=== PATIENT | female | born 1975 | race Caucasian/White ===

== ENCOUNTER → 2016-08-09 | Outpatient (CLI) | payer OTHER ==
[~2016-08-09] MED LIST: GADOBUTROL 10 ML VIAL IVP ONE; GLUCAGON,HUMAN RECOMBINANT 0.3 MG in SYRINGE 0.3 ML IVP ONE
== END ==
LOC: FIMAGING 06:42
PROVIDERS: ATTEND Physician Assistant
DX: K50.00 Crohn's disease of small intestine without complications (principal)
CPT/HCPCS: A9585; J1610

== ENCOUNTER 2016-08-25 14:20 | Emergency (ER) | payer OTHER ==
[2016-08-25] MEDS ORDERED: ONDANSETRON 4 MG/2 ML VIAL IVP ONE (14:41)
[2016-08-25] MEDS ORDERED: NS 1,000 ML IV ONE (14:41)
--- NOTE | 2016-08-25 14:48 | EDPHY ---
H & P Stated Complaint: ABD PAIN, CONCERNED ABOUT SBO Source: Patient Exam Limitations: No limitations - Personal History LMP (Females 10-55): 1-7 Days Ago Current Tetanus Diphtheria and Acellular Pertussis (TDAP): Yes Tetanus Vaccine Date: 12/23 - Medical/Surgical History Hx Asthma: Yes Hx Chronic Respiratory Disease: No Hx Diabetes: No Hx Cardiac Disease: No Hx Renal Disease: No Hx Cirrhosis: No Hx Alcoholism: No Hx HIV/AIDS: No Hx Splenectomy or Spleen Trauma: No Other PMH: bronchitis, asthma, chronic sinus infections, CHRONS DISEASE, MISSCARRIAGE 07/26 - Social History Smoking Status: Never smoked HPI/ROS: CHIEF COMPLAINT: Abdominal pain, possible bowel obstruction HISTORY OF PRESENT ILLNESS: Patient complains of 4 days history of abdominal pain, nausea vomiting. Gradual onset. Constant duration. She had a short period of improvement on Sunday that quickly deteriorated. She has a moderate to severe pain in the epigastrium, left upper quadrant left lower quadrant. Worse with palpation and movement. Associated with nausea and vomiting of liquids and solids. One episode of diarrhea. No bloody stools or emesis. No fever chills. History of Crohn's and Meckel's diverticulum. She also has history of small-bowel obstruction that was treated conservatively. She is has 1 previous diagnostic laparoscopy without surgical intervention otherwise. [facility] is [facility]. She presented to Urgent Care earlier today. They performed a urinalysis and physical exam. They treated her with Toradol as her to our facility for higher level of care. PREVIOUS ABDOMINAL SURGERIES/DIAGNOSES: Crohn's disease, Meckel's diverticulum , previous small-bowel obstruction NPO: Last night followed, recently today with liquids REVIEW OF SYSTEMS: Ten systems reviewed and are negative unless otherwise noted in the HPI EXAMINATION: General Appearance: Alert, no distress Head: normocephalic, atraumatic Eyes: Pupils equal and round, no conjunctival pallor or injection ENT, Mouth: Mucous membranes moist. Uvula midline. Neck: Normal inspection, supple, non-tender Respiratory: Lungs are clear to auscultation Cardiovascular: Regular rate and rhythm. No Gastrointestinal: Abdomen is soft. Tenderness in the epigastrium, left upper quadrant and left lower quadrant. No guarding. No rigidity. No distention. No CVA tenderness. Bowel sounds are diminished in all 4 quadrants. No tympany. Back: non-tender, no bony abnormalities Neurological: GCS 15. A&O, nonfocal, normal gait Skin: Warm and dry, no rash Extremities: Nontender, no pedal edema Psychiatric: Mood and affect normal DIFFERENTIAL DIAGNOSES: Including but not limited to small-bowel obstruction, colitis, enteritis, diverticulitis, mesenteric adenitis, Crohn's flare, ulcerative colitis, cystitis MDM: 2:45 p.m. Abdominal pain with nausea and vomiting over the past few days. Patient has history of Crohn's disease with previous small bowel obstruction treated conservatively. Vital signs are stable. She does have moderate tenderness in the epigastrium and left side of the abdomen. Laboratory studies and CT have been ordered. She is in no acute distress. Nonsurgical abdomen. 3:30 p.m. Labs are all within normal limits. CT scan of the abdomen pelvis is pending at this time. 3:45 p.m. Notified by radiologist Dr. Parra. CT scan of the abdomen pelvis reveals no acute findings. I have re-evaluated the patient. Her pain is improving but not yet to a tolerable level for her. She is in no acute distress. 4:35 p.m. Patient is feeling significantly better. Her pain is tolerable and she is asking to be discharged home. I will discharge her home with short course of pain medication and Zofran. She is to follow up with primary care physician and GI physician early next week for definitive care. Return here for worsening pain, fever, chills, persistent vomiting. She is comfortable with this plan and discharged home in stable condition. ED Precautions: Worsening pain. Fever. Bloody stools. Bloody emesis. Constipation or diarrhea. SUPERVISION: Patient was evaluated in conjunction with the supervising physician. Please see their note for details. (William Hernandes) Constitutional: Initial Vital Signs Temperature (C) 37.0 C 08/25/16 14:26 Heart Rate 97 08/25/16 14:26 Respiratory Rate 16 08/25/16 14:26 Blood Pressure 112/79 08/25/16 14:26 O2 Sat (%) 96 08/25/16 14:26 O2 Delivery Mode Room Air Allergies/Adverse Reactions: Sulfa (Sulfonamide Antibiotics) Allergy (Severe, Verified 03/07/16 16:35) PHOTOSENSITIVITY hydrocodone [Hydrocodone] Allergy (Intermediate, Verified 03/07/16 16:35) Vomiting clemastine fumarate [From Antihistamine] Allergy (Verified 03/07/16 16:35) ALLERGY MED,UNKNOWN NAME onion Allergy (Verified 08/25/16 14:24) phenylpropanolamine HCl [From Antihistamine] Allergy (Verified 03/07/16 16:35) ALLERGY MED,UNKNOWN NAME pseudoephedrine HCl [From Antihistamine] Allergy (Verified 03/07/16 16:35) ALLERGY MED,UNKNOWN NAME tripelennamine HCl [From Antihistamine] Allergy (Verified 03/07/16 16:35) ALLERGY MED,UNKNOWN NAME triprolidine HCl [From Antihistamine] Allergy (Verified 03/07/16 16:35) ALLERGY MED,UNKNOWN NAME Home Medications: Medication Instructions Recorded Loratadine [Claritin 10 mg] 10 mg PO DAILY 10/10/13 Montelukast Sodium [Singulair 10 10 mg PO DAILY 01/09/14 mg (*)] 1 cap PO DAILY 01/13/15 Calcium Carbonate/Vitamin D3 2 tab PO DAILY 03/05/15 [Calcium 250+D Tablet] Enzymes,Digestive [Digestive 1 each PO DAILY 03/05/15 Enzyme] Magnesium 1 tab PO DAILY 03/05/15 Mesalamine [Pentasa 500 mg] 1,000 mg PO QID 03/05/15 Pantoprazole Sodium [Protonix 40mg 40 mg PO BID 03/05/15 (*)] Mesalamine [Pentasa 500 mg] 0 mg PO QID 03/06/15 Humira 03/07/16 Imuran 50 mg (*) 03/07/16 Probiotic 03/07/16 ALPRAZolam 08/25/16 Ondansetron Odt [Zofran Odt 4 mg 4 mg PO Q6 PRN #12 tab 08/25/16 (*)] oxyCODONE HCL/ACETAMINOPHEN 1 each PO Q4-6PRN PRN #14 tablet 08/25/16 [Percocet 5-325 mg Tablet] Medical Decision Making - Diagnostics Imaging Results: Imaging Impressions Abdomen CT 08/25/16 14:43 Impression: 1. Atherosclerotic aorta without aneurysm. 2. No CT evidence of appendicitis, abscess or bowel obstruction. 3. No pneumoperitoneum. Findings discussed with Emergency Department physician's property assistant, William Hernandes , at 1552 hours, 08/25/2016. Final report concurs with initial preliminary interpretation. ED Course/Re-evaluation: I did not see this patient while she was in the emergency department. However her care was discussed with the PA while the patient was in the department. I agree with treatment plan and management (Matt Fong) - Data Points Laboratory Results: Laboratory Results 08/25/16 14:45 08/25/16 14:45 08/25/16 08/25/16 08/25/16 15:58 14:45 14:45 WBC RBC Hgb Hct MCV MCH MCHC RDW Plt Count MPV Neut % (Auto) Lymph % (Auto) [place] % (Auto) Eos % (Auto) Baso % (Auto) Nucleat RBC Rel Count Absolute Neuts (auto) Absolute Lymphs (auto) Absolute Monos (auto) Absolute Eos (auto) Absolute Basos (auto) Absolute Nucleated RBC Immature Gran % Immature Gran # PT INR APTT Sodium 135 mEq/L mEq/L (134-144) Potassium 3.5 mEq/L mEq/L (3.5-5.2) Chloride 106 mEq/L mEq/L (97-110) Carbon Dioxide 20 mEq/l L mEq/l (22-31) Anion Gap 9 mEq/L mEq/L (8-16) BUN 4 mg/dL L mg/dL (7-23) Creatinine 0.6 mg/dL mg/dL (0.6-1.0) Estimated GFR > 60 Glucose 90 mg/dL mg/dL (70-100) Calcium 9.2 mg/dL mg/dL (8.5-10.4) Total Bilirubin 0.5 mg/dL mg/dL (0.1-1.4) Conjugated Bilirubin 0.2 mg/dL mg/dL (0.0-0.5) Unconjugated Bilirubin 0.3 mg/dL mg/dL (0.0-1.1) AST 18 IU/L IU/L (14-46) ALT 27 IU/L IU/L (9-52) Alkaline Phosphatase 57 IU/L IU/L (38-126) Total Protein 6.5 g/dL g/dL (6.3-8.2) Albumin 4.2 g/dL g/dL (3.5-5.0) Lipase 66.0 IU/L IU/L (23-300) Beta HCG, Qual NEGATIVE Urine Color PALE YELLOW Urine Appearance CLEAR Urine pH 6.0 (5.0-7.5) Ur Specific [place] 1.011 (1.002-1.030) Urine Protein NEGATIVE (NEGATIVE) Urine Ketones NEGATIVE (NEGATIVE) Urine Blood 1+ H (NEGATIVE) Urine Nitrate NEGATIVE (NEGATIVE) Urine Bilirubin NEGATIVE (NEGATIVE) Urine Urobilinogen NEGATIVE EU EU (0.2-1.0) Ur Leukocyte Esterase NEGATIVE (NEGATIVE) Urine RBC 1-3 /hpf /hpf (0-3) Urine WBC 1-3 /hpf /hpf (0-3) Ur Epithelial Cells TRACE /lpf /lpf (NONE-1+) Urine Bacteria TRACE /hpf H /hpf (NONE SEEN) Urine Mucus TRACE /lpf /lpf (NONE-1+) Urine Glucose NEGATIVE (NEGATIVE) 08/25/16 08/25/16 14:45 14:45 WBC 8.66 10^3/uL 10^3/uL (3.80-9.50) RBC 4.34 10^6/uL 10^6/uL (4.18-5.33) Hgb 14.4 g/dL g/dL (12.6-16.3) Hct 41.1 % % (38.0-47.0) MCV 94.7 fL fL (81.5-99.8) MCH 33.2 pg pg (27.9-34.1) MCHC 35.0 g/dL g/dL (32.4-36.7) RDW 13.6 % % (11.5-15.2) Plt Count 288 10^3/uL 10^3/uL (150-400) MPV 10.2 fL fL (8.7-11.7) Neut % (Auto) 58.3 % % (39.3-74.2) Lymph % (Auto) 32.9 % % (15.0-45.0) [place] % (Auto) 6.1 % % (4.5-13.0) Eos % (Auto) 1.5 % % (0.6-7.6) Baso % (Auto) 0.7 % % (0.3-1.7) Nucleat RBC Rel Count 0.0 % % (0.0-0.2) Absolute Neuts (auto) 5.05 10^3/uL 10^3/uL (1.70-6.50) Absolute Lymphs (auto) 2.85 10^3/uL 10^3/uL (1.00-3.00) Absolute Monos (auto) 0.53 10^3/uL 10^3/uL (0.30-0.80) Absolute Eos (auto) 0.13 10^3/uL 10^3/uL (0.03-0.40) Absolute Basos (auto) 0.06 10^3/uL 10^3/uL (0.02-0.10) Absolute Nucleated RBC 0.00 10^3/uL 10^3/uL (0-0.01) Immature Gran % 0.5 % % (0.0-1.1) Immature Gran # 0.04 10^3/uL 10^3/uL (0.00-0.10) PT 13.3 SEC SEC (12.0-15.0) INR 1.02 (0.83-1.16) APTT 26.3 SEC SEC (23.0-38.0) Sodium Potassium Chloride Carbon Dioxide Anion Gap BUN Creatinine Estimated GFR Glucose Calcium Total Bilirubin Conjugated Bilirubin Unconjugated Bilirubin AST ALT Alkaline Phosphatase Total Protein Albumin Lipase Beta HCG, Qual Urine Color Urine Appearance Urine pH Ur Specific [place] Urine Protein Urine Ketones Urine Blood Urine Nitrate Urine Bilirubin Urine Urobilinogen Ur Leukocyte Esterase Urine RBC Urine WBC Ur Epithelial Cells Urine Bacteria Urine Mucus Urine Glucose Medications Given: Discontinued Medications Sodium Chloride (Ns) 1,000 mls @ 0 mls/hr IV ONCE ONE; Wide Open PRN Reason: Protocol Stop: 08/25/16 14:42 Last Admin: 08/25/16 14:50 Dose: 1,000 mls Morphine Sulfate (Morphine) 4 mg IVP EDNOW ONE Stop: 08/25/16 14:42 Last Admin: 08/25/16 14:50 Dose: 4 mg Morphine Sulfate (Morphine) 4 mg IVP EDNOW ONE Stop: 08/25/16 16:11 Last Admin: 08/25/16 16:10 Dose: 4 mg Ondansetron HCl (Zofran) 4 mg IVP EDNOW ONE Stop: 08/25/16 14:42 Last Admin: 08/25/16 14:50 Dose: 4 mg Departure - Departure Disposition: Home, Routine, Self-Care Clinical Impression: Abdominal pain Qualifiers: Abdominal location: left upper quadrant Qualified Code(s): R10.12 - Left upper quadrant pain Crohns disease Qualifiers: Gastrointestinal tract location: unspecified location Digestive disease complication type: without complication Qualified Code(s): K50.90 - Crohn's disease, unspecified, without complications Condition: Good Instructions: Acute Abdominal Pain (ED) Additional Instructions: Contact primary care physician and GI physician for definitive care. Return here for worsening pain, fever, chills, bloody stools, persistent emesis Referrals: Jie Wu MD [Primary Care Provider] - As per Instructions Prescriptions: Ondansetron Odt [Zofran Odt 4 mg (*)] 4 mg PO Q6 PRN #12 tab PRN Reason: Nausea/Vomiting, Use 1st oxyCODONE HCL/ACETAMINOPHEN [Percocet 5-325 mg Tablet] 1 each PO Q4-6PRN PRN # 14 tablet PRN Reason: Pain, Breakthrough
[2016-08-25 15:07] LABS: INR 1.02 (0.83-1.16); PROTIME(PATIENT) 13.3 SEC (12.0-15.0)
[2016-08-25 15:08] LABS: APTT 26.3 SEC (23.0-38.0)
[2016-08-25 15:13] LABS: ALANINE AMINOTRANSFERASE 27 IU/L (9-52); ALBUMIN 4.2 g/dL (3.5-5.0); ALKALINE PHOSPHATASE 57 IU/L (38-126); ANION GAP 9 mEq/L (8-16); ASPARTATE AMINOTRANSFERASE 18 IU/L (14-46); BILIRUBIN,TOTAL 0.5 mg/dL (0.1-1.4); BILIRUBIN-CONJUGATED 0.2 mg/dL (0.0-0.5); BILIRUBIN-UNCONJUGATED 0.3 mg/dL (0.0-1.1); CALCIUM 9.2 mg/dL (8.5-10.4); CARBON DIOXIDE 20 mEq/l (22-31); CHLORIDE 106 mEq/L (97-110); CREATININE 0.6 mg/dL (0.6-1.0); GLOMERULAR FILTRATION RATE > 60; GLUCOSE 90 mg/dL (70-100); POTASSIUM 3.5 mEq/L (3.5-5.2); SODIUM 135 mEq/L (134-144); TOTAL PROTEIN 6.5 g/dL (6.3-8.2)
[2016-08-25 15:15] LABS: % IMMATURE GRANULYOCYTES 0.5 % (0.0-1.1); ABSOLUTE IMMATURE GRANULOCYTES 0.04 10^3/uL (0.00-0.10); ADD DIFF? NO; ADD MORPH? NO; ADD SCAN? NO; ATYPICAL LYMPHOCYTE FLAG 30 (0-99); FRAGMENT RBC FLAG 10 (0-99); HEMATOCRIT 41.1 % (38.0-47.0); HEMOGLOBIN 14.4 g/dL (12.6-16.3); LEFT SHIFT FLG 0 (0-99); LIPEMIA HEMOLYSIS FLAG 90 (0-99); MEAN CELL HEMOGLOBIN 33.2 pg (27.9-34.1); MEAN CELL VOLUME 94.7 fL (81.5-99.8); MEAN PLATELET VOLUME 10.2 fL (8.7-11.7); PLATELET CLUMPS FLAG 10 (0-99); PLATELET COUNT 288 10^3/uL (150-400); RED BLOOD CELL COUNT 4.34 10^6/uL (4.18-5.33); RED CELL DISTRIBUTION WIDTH 13.6 % (11.5-15.2)
[2016-08-25] MEDS ORDERED: IOPAMIDOL (ISOVUE-300) 100 ML BTL ONE (15:27)
[2016-08-25 16:06] LABS: COLOR PALE YELLOW; LEUKOCYTE ESTERASE,URINE NEGATIVE (NEGATIVE); NITRITE,URINE NEGATIVE (NEGATIVE)
[2016-08-25 16:09] LABS: BACTERIA TRACE /hpf (NONE SEEN); MUCUS TRACE /lpf (NONE-1+)
[2016-08-25 16:12] VITALS: RESP 20; TEMP 98.4; O2SAT 97
[2016-08-25 16:47] VITALS: BP 123/84; PULSE 78
== END 2016-08-25 16:46 | disposition home or self-care (01) ==
DX: K50.90 Crohn's disease, unspecified, without complications (principal); J45.909 Unspecified asthma, uncomplicated
CPT/HCPCS: 96374; J2405; Q9967

== ENCOUNTER 2016-10-02 15:39 | Emergency (ER) | payer OTHER ==
[2016-10-02 16:09] VITALS: BP 115/78; PULSE 82; RESP 18; TEMP 98.6; O2SAT 97
== END 2016-10-02 17:46 | disposition left against medical advice (07) ==
DX: Z53.21 Procedure and treatment not carried out due to patient leaving prior to being seen by health care provider (principal)

== ENCOUNTER 2016-10-02 18:27 | Emergency (ER) | payer OTHER ==
[2016-10-02 18:53] VITALS: TEMP 98.2
[2016-10-02] MEDS ORDERED: AZITHROMYCIN 250 MG TAB PO ONE (20:06)
--- NOTE | 2016-10-02 20:07 | EDPHY ---
H & P Time Seen by Provider: 10/02/16 18:50 HPI/ROS: 41-year-old female presents complaining of cough and sore throat, postnasal drip. She states she is 5 days into an antibiotic that she believes is amoxicillin and getting no relief she is concerned that she may have pneumonia. No fevers or chills She has a history of Crohn's. Review of systems General no fever no chills no weakness HEENT no eye pain no eye discharge. No eye redness, no sore throat Respiratory positive cough, positive URI symptoms positive postnasal drip, no shortness of breath Cardiac no chest pain, no peripheral edema GI no abdominal pain, no diarrhea, no constipation, no nausea, no vomiting no flank pain, no hematuria, no dysuria Musculoskeletal no myalgias, no joint pain Heme no easy bruising, no easy bleeding Endo no polyuria, no polydipsia Skin no rashes, no pruritus Neuro no syncope, no dizziness, no headaches Psych is no suicidal ideation, no homicidal ideation Past Medical/Surgical History: Crohn's Sinusitis Social History: Denies alcohol or drug use Smoking Status: Former smoker Physical Exam: 41-year-old female alert and oriented in no acute distress nontoxic appearance afebrile no respiratory d distress no tachypnea HEENT atraumatic normocephalic, extraocular muscles intact, anicteric Oropharynx mild erythema negative exudate, tolerating her own secretions Neck supple no meningismus Lungs clear to auscultation bilaterally Heart regular rate and rhythm without murmur rub or gallop Abdomen nondistended normoactive bowel sounds soft nontender Back no CVA tenderness, no step-offs, no spinal tenderness Extremities no cyanosis clubbing or edema Neuro alert and oriented, no focal deficits Constitutional: Initial Vital Signs Temperature (C) 36.8 C 10/02/16 18:52 Heart Rate 75 10/02/16 18:52 Respiratory Rate 18 10/02/16 18:52 Blood Pressure 126/76 H 10/02/16 18:52 O2 Sat (%) 98 10/02/16 18:52 O2 Delivery Mode Room Air Allergies/Adverse Reactions: Sulfa (Sulfonamide Antibiotics) Allergy (Severe, Verified 10/02/16 18:54) PHOTOSENSITIVITY hydrocodone [Hydrocodone] Allergy (Intermediate, Verified 10/02/16 18:54) Vomiting clemastine fumarate [From Antihistamine] Allergy (Verified 10/02/16 18:54) ALLERGY MED,UNKNOWN NAME onion Allergy (Verified 10/02/16 18:54) phenylpropanolamine HCl [From Antihistamine] Allergy (Verified 10/02/16 18:54) ALLERGY MED,UNKNOWN NAME pseudoephedrine HCl [From Antihistamine] Allergy (Verified 10/02/16 18:54) ALLERGY MED,UNKNOWN NAME tripelennamine HCl [From Antihistamine] Allergy (Verified 10/02/16 18:54) ALLERGY MED,UNKNOWN NAME triprolidine HCl [From Antihistamine] Allergy (Verified 10/02/16 18:54) ALLERGY MED,UNKNOWN NAME Home Medications: Medication Instructions Recorded Montelukast Sodium [Singulair 10 10 mg PO DAILY 01/09/14 mg (*)] Pantoprazole Sodium [Protonix 40mg 40 mg PO BID 03/05/15 (*)] Humira 03/07/16 Imuran 50 mg (*) 03/07/16 ALPRAZolam 08/25/16 AZITHROMYCIN [Z-PACK] 250 mg PO DAILY #6 tab 10/02/16 Amox Tr/Potassium Clavulanate 1 each PO 10/02/16 [Augmentin 1000MG ER Tablet (*)] Benzonatate [Tessalon Pearles (RX)] 100 mg PO 10/02/16 Medical Decision Making ED Course/Re-evaluation: Patient seen and evaluated for cough, postnasal drip sore throat already on Augmentin. Differential diagnosis Bronchitis, pneumonia, URI, viral syndrome Chest x-ray Consistent with bronchitis No focal consolidation Impression Bronchitis Plan [facility] Follow-up PCP - Data Points Medications Given: Discontinued Medications Azithromycin (Zithromax) 500 mg PO EDNOW ONE PRN Reason: Protocol Stop: 10/02/16 20:07 Last Admin: 10/02/16 20:29 Dose: 500 mg Departure - Departure Disposition: Home, Routine, Self-Care Clinical Impression: Acute bronchitis Condition: Good Referrals: Jie Wu MD [Primary Care Provider] - As per Instructions Prescriptions: AZITHROMYCIN [Z-PACK] 250 mg PO DAILY #6 tab
[2016-10-02 20:35] VITALS: BP 111/65; PULSE 72; RESP 16; O2SAT 97
== END 2016-10-02 20:29 | disposition home or self-care (01) ==
LOC: CED 18:27
DX: J20.9 Acute bronchitis, unspecified (principal); Z87.891 Personal history of nicotine dependence
CPT/HCPCS: 71020-PO

== ENCOUNTER → 2018-01-15 | Outpatient (CLI) | payer OTHER ==
[~2018-01-15] MED LIST changes: +GLUCAGON HCL 0.3 MG in SYRINGE 0.3 ML IVP SCH; -GLUCAGON,HUMAN RECOMBINANT 0.3 MG in SYRINGE 0.3 ML IVP ONE
== END ==
LOC: FIMAGING 09:03
PROVIDERS: ATTEND Physician Assistant
DX: K50.00 Crohn's disease of small intestine without complications (principal); K59.00 Constipation, unspecified
CPT/HCPCS: A9585; J1610